=== PATIENT | female | born 1990 | race Asian ===

== ENCOUNTER 2018-08-02 05:47 | Inpatient (IN) | payer BC ==
[~2018-08-02 05:47] MED LIST: Bicitra 30 ML UDCUP PO SCH; CEFAZOLIN/Water 2 GM/20 ML SYRINGE SLOW IVP SCH; Lactated Ringer's 1,000 ML IV SCH; Ondansetron HCl/PF 4 MG/2 ML Vial IVP PRN; Promethazine HCl 25 MG/ML VIAL IM PRN
[2018-08-02 06:27] VITALS: BMI 32.1
[2018-08-02 06:48] LABS: Hemoglobin 12.1 g/dL (12.0-16.0); Mean Corpuscular HGB CONC 35.1 g/dL (32.0-36.0); Mean Corpuscular Hemoglobin 32.5 pg (27.0-31.0); Mean Corpuscular Volume 92.5 fL (78.0-98.0); Mean Platelet Volume 8.2 fL (7.4-10.4); Platelet Count 145 thou/uL (130-400); RBC Distribution Width 12.6 % (11.5-14.5); Red Blood Cell (RBC) Count 3.72 mill/uL (4.20-5.40); White Blood Cell (WBC) Count 8.1 thou/uL (4.8-10.8)
[2018-08-02] MEDS ORDERED: Oxytocin 10 UNITS/ML VIAL ONE (07:10)
[2018-08-02] MEDS ORDERED: Morphine PF 1 MG/ML SYR ONE (07:10)
[2018-08-02] MEDS ORDERED: Lidocaine 2% PF Inj 2 ML VIAL ONE (07:11)
[2018-08-02] MEDS ORDERED: Bupivacaine 0.75% W/DEXTROSE 8.25% 2 ML AMP ONE (07:11)
[2018-08-02 07:32] LABS: HBSAg Index 0.22 S/CO (0-0.99); Hep B Surf Ag Non-Reactive S/CO (NonReactive); Syphilis Antibody Nonreactive (Nonreactive); Syphilis Antibody Index 0.02 S/CO (<1.00 Non-Reactive)
[2018-08-02] MEDS ORDERED: PHENYLEPHRINE-NS 100 MCG/ML 10 ML SYRINGE ONE ×2 (07:47→14:22)
[2018-08-02] MEDS ORDERED: HYDROmorphone 2 MG/ML VIAL SLOW IVP PRN (08:07)
[2018-08-02] MEDS ORDERED: Meperidine HCl/PF 25 MG/ML VIAL SLOW IVP PRN (08:07)
[2018-08-02] MEDS ORDERED: diphenhydrAMINE 50 MG/ML VIAL IVP PRN (08:07)
[2018-08-02] MEDS ORDERED: Ketorolac Tromethamine 30 MG/ML VIAL IVP PRN (08:07)
[2018-08-02] MEDS ORDERED: Naloxone HCl 0.4 mg/ml Vial IVP PRN ×2 (08:07)
[2018-08-02] MEDS ORDERED: Promethazine HCl 25 MG/ML VIAL IM PRN (08:07)
[2018-08-02] MEDS ORDERED: L&D-Morphine 4 MG/ML VIAL SLOW IVP PRN (08:07)
[2018-08-02] MEDS ORDERED: Naloxone HCl 0.4 mg/ml Vial IV PRN (08:07)
[2018-08-02] MEDS ORDERED: Promethazine HCl 25 MG SUPP PR PRN (08:07)
[2018-08-02] MEDS ORDERED: Ondansetron HCl/PF 4 MG/2 ML Vial IVP PRN ×3 (08:07→09:01)
[2018-08-02] MEDS ORDERED: Eucerin (Mineral Oil/Petrolatum,White) 30 gm Jar TOP PRN (08:07)
[2018-08-02] MEDS ORDERED: Ketorolac Tromethamine 30 MG/ML VIAL IVP SCH (08:15)
[2018-08-02] MEDS ORDERED: Communication Order-Pharmacy FS SCH (08:15)
[2018-08-02] MEDS ORDERED: Lanolin Ointment 7 GM TUBE TOP PRN (09:01)
[2018-08-02] MEDS ORDERED: Adacel (T-DAP) 0.5 ML VIAL IM ONE (09:01)
[2018-08-02] MEDS ORDERED: diphenhydrAMINE 25 MG CAP PO PRN (09:01)
[2018-08-02] MEDS ORDERED: Ketorolac Tromethamine 30 MG/ML VIAL ONE ×2 (09:07→09:12)
[2018-08-02] MEDS ORDERED: Ondansetron HCl/PF 4 MG/2 ML Vial ONE (09:10)
[2018-08-02] MEDS ORDERED: Lactated Ringer's 1,000 ML IV SCH (09:15)
[2018-08-02] MEDS ORDERED: Promethazine HCl 25 MG/ML VIAL ONE (10:10)
[2018-08-02] MEDS ORDERED: Acetaminophen 1,000 MG in Premix Bag 1 BAG IVPB SCH (10:30)
[2018-08-02] MEDS ORDERED: NS / Oxytocin 40 units/1000ml 1,000 ML ONE (11:04)
[2018-08-02] MEDS ORDERED: Acetaminophen/Codeine 30-300mg Tablet PO PRN (20:15)
[2018-08-02] MEDS: Docusate Calcium (SURFAK) 240 MG CAP PO SCH (22:16)
[2018-08-03] MEDS ORDERED: Naloxone HCl 0.4 mg/ml Vial IV PRN ×3 (02:50)
[2018-08-03] MEDS ORDERED: NO PO,IM,IV OR SC NARCOTICS FOR 12HR EXCEPT BY ANESTHESIA PO SCH (02:50)
[2018-08-03] MEDS ORDERED: diphenhydrAMINE 50 MG/ML VIAL IVP PRN (02:50)
[2018-08-03] MEDS ORDERED: Promethazine HCl 25 MG/ML VIAL IM PRN (02:50)
[2018-08-03] MEDS ORDERED: Promethazine HCl 25 MG SUPP PR PRN (02:50)
[2018-08-03] MEDS ORDERED: Ketorolac Tromethamine 30 MG/ML VIAL IVP PRN (02:50)
[2018-08-03] MEDS ORDERED: Hydrocerin (Eucerin) Cream 120 gm Jar TOP PRN (02:50)
[2018-08-03] MEDS ORDERED: Ondansetron HCl/PF 4 MG/2 ML Vial IVP PRN (02:50)
[2018-08-03 05:09] LABS: Hemoglobin 12.3 g/dL (12.0-16.0); Mean Corpuscular HGB CONC 34.6 g/dL (32.0-36.0); Mean Corpuscular Hemoglobin 32.4 pg (27.0-31.0); Mean Corpuscular Volume 93.6 fL (78.0-98.0); Mean Platelet Volume 8.2 fL (7.4-10.4); Platelet Count 130 thou/uL (130-400); RBC Distribution Width 12.5 % (11.5-14.5); Red Blood Cell (RBC) Count 3.81 mill/uL (4.20-5.40); White Blood Cell (WBC) Count 10.4 thou/uL (4.8-10.8)
[2018-08-03] MEDS: Docusate Calcium (SURFAK) 240 MG CAP PO SCH ×2 (09:36→21:31)
[2018-08-03] MEDS: Prenatal Vitamin 1 TAB PO SCH (09:36)
[2018-08-03] MEDS ORDERED: Ibuprofen 800 MG TAB PO SCH (14:00)
[2018-08-03] MEDS: Simethicone Chewable 80 MG TAB PO PRN (15:12)
[2018-08-03] MEDS: Acetaminophen/Codeine 30-300mg Tablet PO PRN ×2 (15:12→21:35)
[2018-08-03] MEDS: Ibuprofen 800 MG TAB PO SCH (21:32)
[2018-08-04] MEDS: Ibuprofen 800 MG TAB PO SCH ×2 (06:08→13:50)
[2018-08-04] MEDS: Simethicone Chewable 80 MG TAB PO PRN (06:08)
[2018-08-04 08:03] VITALS: BP 102/62; TEMP 97.9
[2018-08-04] MEDS: Prenatal Vitamin 1 TAB PO SCH (10:05)
[2018-08-04] MEDS: Docusate Calcium (SURFAK) 240 MG CAP PO SCH (10:05)
--- NOTE | 2018-08-04 21:51 | OP ---
DATE OF PROCEDURE: 08/02/2018 PREOPERATIVE DIAGNOSES: 1. A 28-year-old G2, P1 at 39 weeks with a scheduled repeat low transverse section. 2. Group B Streptococcus negative. 3. Language barrier, interprets for the patient. POSTOPERATIVE DIAGNOSES: 1. A 28-year-old G2, P1 at 39 weeks with a scheduled repeat low transverse section. 2. Group B Streptococcus negative. 3. Language barrier, interprets for the patient. 4. Liveborn female weighing 7 pounds and 6 ounces with Apgars of 8 and 9 at 1 and 5 minutes respecti familia. SURGEON: Jyothi Merida M.D. HELP DESK INTERN: Dr. James Centeno. ESTIMATED BLOOD LOSS: 500 mL. QUANTITATIVE BLOOD LOSS: 535mL. CLINICAL HISTORY: This patient is a 28-year-old G2, P1 who presented for her new OB exam in the firs t trimester and continued on through the entire without any significant concerns other than history of anemia in the previous and desire for a vaginal after . After re view of her medical records, it was noted that she delivered for presumed cephalopelvic disproportion and the patient was counseled of the risks, benefits and possible complications and given her past m edical history and inability to drop or dilate at 39 weeks, she was scheduled for repeat low transver se section. The risks, benefits and possible complications were discussed and the patient w ished to proceed. DETAILS OF PROCEDURE: The patient was taken to the operating room where spinal anesthesia was obtain ed. She was assisted by her for translation. She was laid in the supine position with a lef tward tilt and prepped and draped in the usual sterile fashion. After testing for adequate anesthesi a, an incision was made over the previous incision and this incision was removed. The incision was t hen carried down to the fascia where the fascia was nicked in the midline and extended out bilaterall y with the Duenas scissors. The superior edge was elevated off of the rectus muscles and the underlyin g fascia and omentum that were adhered. Then the attention was turned down below where the inferior fascial border was elevated off the rectus and pyramidalis muscles. The peritoneum was breached and the incision was extended with traction and sharp dissection. The bladder blade was placed and the b ladder flap was created. This was then allowed for retraction of the bladder down below the lower ut erine segment. A window was noted that was a rather large. The incision was made over this window a nd clear fluid was noted. The surgeon's hand was placed into the abdomen and then the head was deliv ered through the incision, the anterior shoulder followed by the posterior shoulder followed by the r emainder of the infant's body. The infant cried spontaneously. A double clamp was placed on the cor d and it was cut and the was sent over to the nursery team in attendance for the delivery. Co rd blood was obtained and then the placenta was delivered manually intact with a 3-vessel cord. The uterus was then exteriorized and cleansed of all debris and then the incision was closed with a doubl e closure for strength and reapproximation given her history of the window noted in surgery. Once th is incision was hemostatic, the decision was made not to close the bladder flap given that the bladde r was higher up on the uterine anterior surface. The gutters were then cleansed of all debris and th e anatomy was noted to be normal. The uterus was then placed back into the abdomen and the peritoneu m was then closed in a running fashion. The rectus muscles were then reapproximated with a figure-of -eight suture, and the fascia was then closed in a running fashion with excellent hemostasis. The tam bcutaneous tissues were then cleansed of all debris and Bovie cautery was used to correct any bleedin g. The subcutaneous tissues were then closed in multiple layers with interrupted 2-0 plain gut sutur es and then the skin was closed in a running fashion with a 4-0 Monocryl and reinforced with Steri-St rips and Mastisol. A pressure dressing was placed over this incision and the patient was allowed to transfer to the [facility] to transfer to the post-surgical unit in satisfactory condition. All needle, sponge, lap, and instrument counts were correct x2 at the end of the procedure. There were no other issues surrounding this delivery.
== END 2018-08-04 18:00 | disposition home or self-care (01) | DRG 788 ==
LOC: L&D 05:47 → 3SW 15:54 → EDSTATUS 10-17 12:51
PROVIDERS: ADMIT Obstetrics & Gynecology; ATTEND Obstetrics & Gynecology
PROC: 10D00Z1 Extraction of Products of Conception, Low, Open Approach (ICD-10-PCS; principal; 2018-08-02)
DX: O34.211 Maternal care for low transverse scar from previous cesarean delivery (principal); Z3A.39 39 weeks gestation of pregnancy; Z37.0 Single live birth
CPT/HCPCS: 36415; 51702; 85027; 86780; 86850; 86900; 86901; 87340; J1885; J2274; J2405; J2550; J2590; J3490

== ENCOUNTER 2020-06-13 07:08 | Day surgery (SDC) | payer BC ==
[2020-06-11 10:19] VITALS: BMI 25.0
[2020-06-13] MEDS ORDERED: Fentanyl 100 MCG/2 ML VIAL ONE ×2 (07:26→10:04)
[2020-06-13] MEDS ORDERED: Bupivacaine 0.25% HCL 30 ML VIAL ONE (07:29)
[2020-06-13] MEDS ORDERED: Lidocaine 1% w/Epinephrine 1:100K 20 ML VIAL ONE (07:29)
[2020-06-13] MEDS ORDERED: Ketorolac Tromethamine 30 MG/ML VIAL ONE ×2 (07:36→11:14)
[2020-06-13] MEDS ORDERED: Iothalamate Meglumine 60% 50 ML VIAL FS ONE (07:45)
[2020-06-13] MEDS ORDERED: Midazolam HCl 2 mg/2 ml Vial ONE (07:48)
[2020-06-13] MEDS ORDERED: Famotidine/PF 20 mg/2ml Vial ONE (08:07)
[2020-06-13] MEDS ORDERED: Ondansetron PF 4 MG/2 ML Vial ONE ×2 (10:00→11:14)
[2020-06-13] MEDS ORDERED: Promethazine HCl 25 MG/ML VIAL ONE (10:12)
[2020-06-13] MEDS ORDERED: Rocuronium Bromide 10 MG/ML (10ML VIAL) ONE (11:14)
[2020-06-13] MEDS ORDERED: PROPOFOL 200 MG/20 ML VIAL ONE (11:14)
[2020-06-13] MEDS ORDERED: Glycopyrrolate 0.2 MG/ML 5 ML SYRINGE ONE (11:14)
[2020-06-13] MEDS ORDERED: Dexamethasone 20 MG/5 ML VIAL ONE (11:14)
[2020-06-13] MEDS ORDERED: Lidocaine 1% PF 5 ML VIAL ONE (11:14)
[2020-06-13] MEDS ORDERED: HYDROcodone/Acetaminophen 5/325 mg Tablet ONE (12:24)
--- NOTE | 2020-06-13 13:20 | RAD ---
INTRAOPERATIVE CHOLANGIOGRAM: Date: 06/13/2020 HISTORY: Follow-up cholecystectomy. FINDINGS: Single portable fluoroscopic spot image demonstrates contrast injected into the cystic duct filling t he common bile duct with emptying into the duodenum. There is also filling of the common hepatic duct and portions of the intrahepatic ductal system. No abnormal ductal dilatation or intraductal calculu s. IMPRESSION: Unremarkable intraoperative cholangiogram. No evidence for retained intraductal calculus. POS: RRE
--- NOTE | 2020-06-14 18:46 | PDOC.OP ---
Operative Note - Operative Note Operative Note: DATE OF PROCEDURE: PROCEDURES: Laparoscopic cholecystectomy with intraoperative cholangiogram. SURGEON: Ana Jefferson M.D. PREOPERATIVE DIAGNOSIS: Cholelithiasis, cholecystitis, and possible choledocholithiasis POSTOPERATIVE DIAGNOSIS: Cholelithiasis and cholecystitis FINDINGS: Hydropic distended gallbladder with thickened wall and large stone impacted in neck. Normal intraoperative cholangiogram HISTORY: Patient with signs and symptoms of biliary colic and chronic cholecystitis. Laparoscopic cholecystectomy was recommended for symptomatic relief and prevention of future episodes. Intraoperative cholangiogram was also recommended due to past elevation in bilirubin, although this had returned to normal by the time of her surgery. PROCEDURE: After informed consent was obtained and appropriate preoperative antibiotics were administered, the patient was taken to the operating room and placed in the supine position and general endotracheal anesthesia was administered. The stomach was decompressed with an OG tube and the abdomen was prepped and draped in standard sterile fashion. Local anesthesia was infused to the skin and subcutaneous tissues at the umbilical level. A transverse skin incision was made. The fascia was elevated and a Veress needle was placed into the abdominal cavity without difficulty. Opening pressure was less than 5 and carbon dioxide gas easily insufflated to an intra-abdominal pressure of 15, which the patient tolerated well. The Veress needle was withdrawn and a [place] port advanced under direct vision. The abdominal cavity was carefully examined. There was no evidence of Veress needle or of trocar injury. Local anesthesia was infused to the skin and subcutaneous tissues at the epigastric, right upper quadrant, and right lateral abdominal sites and trocars were placed under direct vision of the laparoscope. The gallbladder was noted to be inflamed and distended in appearance and too taut to grasp it. The gallbladder was aspirated with removal of about 100 mL of pale bile consistent with hydrops. The fundus of the gallbladder was grasped and retracted superiorly. The infundibulum was grasped and retracted laterally. A large stone was noted to be impacted in the neck of the gallbladder. The serosa was stripped inferiorly at the level of the neck of the gallbladder exposing the cystic duct and artery which were traced clearly to their insertion in the gallbladder. These were dissected free circumferentially and the cystic duct was clipped at the level of the neck of the gallbladder. The cystic artery was clipped but not divided. The cystic duct was noted to be very small in caliber. An incision was made in the cystic duct inferior to the clip and the cystic duct was palpated with no stones palpable. Clear bile was seen to flow from the cystic duct incision. A cholangiogram catheter was introduced and placed into the cystic duct and secured with a clip. A cholangiogram was obtained which showed an adequate length of cystic duct. There was normal filling of the common bile duct with free flow of contrast into the duodenum. There was normal retrograde flow into the common hepatic duct beyond the level of the bifurcation without filling defects. The cholangiogram catheter was removed and the cystic duct clipped below the incision in the cystic duct. The cystic duct was divided between these clips and the previously placed clip. The cystic artery was clipped and divided between the previously placed clips. The gallbladder was then dissected free of the gallbladder bed using hook electrocautery. Prior to complete removal of the gallbladder from the gallbladder bed, the area of the cystic duct and artery stumps was examined. The clips were in good position completely across these structures and there was no bleeding and no leakage of bile. The gallbladder was then placed into an EndoCatch bag and drawn out through the epigastric incision after crushing and removing the large stone. Even after the stone was removed it was somewhat difficult to remove the gallbladder due to the thickening of the gallbladder wall. The epigastric trocar was replaced and the operative site easily irrigated to clear. There was no significant bleeding or spillage of bile. The epigastric trocar was removed and the fascia closed under direct laparoscopic vision with a 0 Vicryl suture on a GraNee needle in a [id number] manner with excellent technical result. The right upper quadrant and right lateral abdominal trocars were removed and hemostasis verified. Carbon dioxide gas was allowed to desufflate through the umbilical trocar which was then removed. Due to the patient's thin body habitus the fascia at the umbilical incision was visible and was closed under direct vision with a 0 Vicryl suture on a UR 6 needle. Additional local anesthesia was infused for postoperative pain control. The skin incisions were closed with 4-0 subcuticular Monocryl sutures and Dermabond dressings were placed. The patient was extubated and taken to the recovery room in good condition. There were no complications. ESTIMATED BLOOD LOSS: Minimal. SPECIMEN : Gallbladder and contents.
== END 2020-06-13 13:30 | disposition home or self-care (01) ==
LOC: SDC 07:08
PROVIDERS: ATTEND Surgery
PROC: 0FT44ZZ Resection of Gallbladder, Percutaneous Endoscopic Approach (ICD-10-PCS; principal; 2020-06-13)
PROC: BF101ZZ Fluoroscopy of Bile Ducts using Low Osmolar Contrast (ICD-10-PCS; principal; 2020-06-13)
DX: K80.10 Calculus of gallbladder with chronic cholecystitis without obstruction (principal); K82.8 Other specified diseases of gallbladder
CPT/HCPCS: 36416; 47532; 88304; J0690; J1100; J1610; J1885; J2250; J2405; J2550; J2704; J3010; S0020; S0028